=== PATIENT | male | born 1940 | race Caucasian/White ===

== ENCOUNTER 2016-10-10 22:19 | Inpatient (IN) | payer MEDICARE, BC ==
--- NOTE | ~2016-10-10 | CO ---
Unit #: [id number] #: [id number] Patient: AQUILES IRAHETA SR [id number] [address] [address] [id number] I MR#: [id number] NAME: AQUILES IRAHETA SR ROOM: 229 Age: 76 Sex: M Admission Date: 10/11/2016 : 1940 Attending Physician: Daniel Claire M.D. Primary Care Physician: Aquiles Glez M.D. Consultation Date: 10/13/2016 CONSULTATION REPORT CHIEF COMPLAINT Fever. HISTORY OF PRESENT ILLNESS The patient is a 76-year-old male with diabetic neuropathy and left Charcot foot who underwent left foot outpatient surgery on 10/10/2016. He underwent excision of his medial cuneiform with transfer of his anterior tibial tendon because of an impending ulceration on the medial aspect of his foot. He did not have a history of infection nor did he have a history of an ulceration. The patient then developed a postoperative fever and was admitted on postoperative day one with a reported fever of 100.7. He was subsequently found to have a urinary tract infection. Orthopedic consultation is requested to evaluate his foot for possible postoperative infection. PAST MEDICAL HISTORY Remarkable for: 1. Type 2 diabetes. 2. Peripheral neuropathy. 3. Coronary artery disease. 4. Coronary artery bypass graft. 5. Hypertension. 6. Sleep apnea. 7. COPD. 8. GE reflex. 9. Poe esophagus. PAST SURGICAL HISTORY 1. Coronary artery bypass graft. 2. Left foot surgery as noted above. 3. Left total knee arthroplasty. HOME MEDICATIONS 1. Albuterol. 2. Aspirin. 3. QVAR. 4. Natalia. 5. Neurontin. 6. Hydrochlorothiazide. 7. Insulin. 8. Glucophage. 9. Bystolic. 10. Omeprazole. 11. Percocet. Unit #: [id number] #: [id number] Patient: AQUILES IRAHETA SR 12. Bactrim. ALLERGIES Penicillin, morphine, Cleocin, chlorhexidine, amiodarone, Levaquin, statins, Victoza and mold. SOCIAL HISTORY The patient quit smoking 30 years ago. He drinks rarely. EXAMINATION Current temperature 99.1. Temperature eight hours ago was 101.3. Blood pressure 121/54, pulse 92. In general, this is an obese male in no acute distress. He is alert, oriented and does not have any complaints of pain. His foot dressing is dry and intact. The dressing was removed, his incision is inspected and found to be intact and dry. There is no evidence of bleeding, fluctuance or drainage. A posterior splint was reapplied with padding on the posterior heel. DIAGNOSTIC STUDIES LABORATORY: CBC today shows hemoglobin 12.7, hematocrit 36.2, white blood cell count 12.1. IMPRESSION 1. Postoperative fever, most likely secondary to atelectasis. 2. Urinary tract infection. 3. Postoperative left foot surgery three days ago. It is doubtful that his foot is the source of fever. PLAN 1. Incentive spirometry q.2 hours while awake. 2. Non-weight bearing for six weeks. 3. Follow up in my office as ordered in ten days. Dictated by.Kenny Bass M.D. GRUPO/helene TD: 10/13/2016 11:21 JOB #: [id number] CONSULTATION REPORT Page 1 of 1 X Luz Elena Bass MD X CONSULTATION REPORT
--- NOTE | ~2016-10-10 | CR72 ---
[facility] A Service of [facility] RADIOLOGY TEXT RESULTS PATIENT: AQUILES IRAHETA SR LOCATION: [facility] : 42 UNIT #: [id number] AGE: [address]: Daniel Claire MD SEX: M ORDER DR: [id number] [facility] [address] [facility] [place], [place] [address] [id number] I MR#: [id number] Acc #: [id number] NAME: AQUILES IRAHETA SR : 1940 SEX: M STUDY DATE/TIME: 10/11/2016 0:25 UNIT: CEDOF ROOM: 66921 STUDY DESCRIPTION: CR Chest Single View Portable Attending Physician: Daniel Claire M.D. Ordering Physician: Akosua Barreto M.D. Primary Care Physician: Aquiles Glez M.D. MEDICAL IMAGING REPORT This report is preliminary unless electronic signature is present EXAM Single view chest INDICATIONS Fever and shortness of air. 2-day duration. FINDINGS AP radiograph of the chest compared to 02/08/2016. The heart is mildly enlarged. Patient is status post CABG. No new pulmonary opacities. No pleural effusion. IMPRESSION Stable cardiomegaly. Patient is status post CABG. No new findings. Dictated by... Ryan Solares M.D. THIS IS AN ELECTRONICALLY VERIFIED REPORT Ryan Solares M.D. at 10/11/2016 11:13 PM RPC/rnr TD: 10/11/2016 05:28 JOB #: [id number] MEDICAL IMAGING REPORT Page 1 of 1 COPY
--- NOTE | ~2016-10-10 | HP ---
Unit #: [id number] #: [id number] Patient: AQUILES IRAHETA SR [id number] [address] [place], [place] [address] [id number] I MR#: [id number] NAME: AQUILES IRAHETA SR ROOM: 229 Age: 76 Sex: M Admission Date: 10/11/2016 : 1940 Attending Physician: Daniel Claire M.D. Primary Care Physician: Aquiles Glez M.D. HISTORY AND PHYSICAL HISTORY OF PRESENT ILLNESS This is a 76-year-old, white male with type 2 diabetes mellitus, peripheral neuropathy, coronary artery disease, coronary artery bypass grafting, hypertension, obstructive sleep apnea syndrome, COPD, GE reflux disease, Poe esophagus, left total knee replacement, and had left foot surgery yesterday by Dr. Bass for Charcot foot. He was home last night and began having rigors and high fever; according to the patient, it was 106.6. He arrived to the emergency room where it was 100.1. His O2 sat was 89%. Workup was essentially negative, except for an elevated white count and evidence of a urinary tract infection and the patient is admitted. He has had no problems in the past with urinary tract infection or BPH and does not have any voiding symptoms at this time. ALLERGIES He has stated allergies to penicillin, morphine, Cleocin, chlorhexidine, amiodarone, Levaquin, statins, Victoza, and mold. MEDICATIONS PRIOR TO ADMISSION 1. Albuterol 1 inhalation q.4 hours. 2. Aspirin 325 mg daily. 3. QVAR 2 puffs twice daily. 4. Natalia 180 mg daily. 5. Lasix 20 mg daily. 6. Neurontin 800 mg q.i.d. 7. Hydrochlorothiazide 50 mg daily. 8. Humalog 25 units subcu. t.i.d. with meals. 9. Lantus SoloStar 45 units subcu. q.h.s. 10. Glucophage 1000 mg b.i.d. 11. Bystolic 5 mg daily. 12. Omeprazole 40 mg daily. PAST SURGICAL HISTORY Left foot surgery yesterday for Charcot joint. He has had a left total knee replacement, coronary artery bypass grafting, cardiac stent, bilateral wrist surgery, bilateral elbow surgery, laminectomy, cholecystectomy, cataract surgery, and, actually, bilateral knee surgery. PAST MEDICAL HISTORY Coronary artery disease, type 2 diabetes mellitus with peripheral neuropathy, hypertension, COPD, obstructive sleep apnea syndrome, GE reflux disease with Poe esophagus. SOCIAL HISTORY He quit smoking some 30 years ago. Rare alcohol use. No street drug use. Unit #: [id number] #: [id number] Patient: AQUILES IRAHETA SR FAMILY HISTORY Noncontributory. PHYSICAL EXAMINATION GENERAL APPEARANCE: He is awake, alert, and oriented x3 in no acute distress. VITAL SIGNS: Temperature currently is 99.1, pulse 85, respirations 17, blood pressure 122/89, and O2 sat 89% on room air in the ER and now 97% on 2 liters. HEENT: Unremarkable except for nasal cannula in place. NECK: Supple without JVD, bruits, adenopathy, or thyromegaly. CHEST: Diffusely decreased breath sounds, but clear to auscultation. HEART: Regular rate and rhythm without any murmurs, rubs, or gallops. ABDOMEN: Large, soft, nondistended, and nontender with positive bowel sounds and no hepatosplenomegaly. EXTREMITIES: Show trace bilateral lower extremity edema. The left foot and ankle are dressed. : Deferred. RECTAL: Deferred. NEUROLOGIC: Grossly intact. DIAGNOSTIC STUDIES LABORATORY: Urinalysis shows 3+ leukocytes, 1+ blood, 200-300 white cells per high powered field, and no bacteria is seen. White count is 13.5 with a left shift, hemoglobin is 12.6, and platelets 250,000. PT and lactic acid are normal. CMP within normal limits, except for a sodium of 130, potassium of 3.3, and a GFR of 49. IMAGING: Chest x-ray: Stable cardiomegaly. Status post coronary artery bypass grafting. No active disease. IMPRESSION 1. Urinary tract infection. 2. Renal insufficiency of unclear duration. 3. Hypokalemia. 4. Hyponatremia. 5. Status post left foot surgery for Charcot foot. 6. Coronary artery disease, status post coronary artery bypass grafting. 7. Type 2 diabetes mellitus with peripheral neuropathy. 8. Obstructive sleep apnea syndrome, noncompliant with CPAP. 9. COPD. 10. GE reflux disease with history of Poe esophagus. 11. Hypertension. PLAN Urine and blood cultures, IV antibiotics, increase potassium, DVT prophylaxis, and postvoid bladder scan. Further evaluation pending results of the above. Dictated by Elvi Dotson/dejah TD: 10/11/2016 09:50 Unit #: [id number] #: [id number] Patient: AQUILES IRAHETA SR JOB #: [id number] HISTORY AND PHYSICAL Page 1 of 1 X Daniel Claire MD X HISTORY AND PHYSICAL
--- NOTE | ~2016-10-10 | DS ---
Unit #: [id number] #: [id number] Patient: AQUILES IRAHETA SR [id number] [address] [address] [id number] I MR#: [id number] NAME: AQUILES IRAHETA SR ROOM: 229 Age: 76 Sex: M Admission Date: 10/11/2016 : 1940 Discharge Date: 10/14/2016 Attending Physician: Daniel Claire M.D. Primary Care Physician: Aquiles Glez M.D. DISCHARGE SUMMARY PRINCIPAL DISCHARGE DIAGNOSES 1. Postoperative fever. 2. Pyuria with negative urine culture. 3. Recent left foot surgery for Charcot foot. 4. Type 2 diabetes mellitus with peripheral neuropathy. 5. Coronary artery disease status post coronary artery bypass grafting. 6. Hypertension. 7. Obstructive sleep apnea syndrome, noncompliant with continuous positive airway pressure. 8. Chronic obstructive pulmonary disease. 9. Gastroesophageal reflux disease. 10. History of Poe esophagus. 11. Renal insufficiency of unknown duration. 12. Hypoxemia on admission that resolved spontaneously. 13. Hypokalemia. 14. Hyponatremia. 15. Acute mental status changes on admission secondary to fever. PROCEDURES None. CONSULTANTS Dr. Bass from orthopedics. REASON FOR HOSPITALIZATION The patient is a 76-year-old male with type 2 diabetes mellitus, peripheral neuropathy, coronary artery disease, hypertension, coronary artery bypass grafting, obstructive sleep apnea syndrome, COPD, GE reflux disease, Poe esophagus. Underwent left foot surgery on 10/10/16 for Charcot foot. Later that evening he began to run a high fever, arrived in the emergency room somewhat confused. In the ER he had a low-grade temp at 99.3, even though it had been a 103 degrees at home. His O2 sat was 89% on room air. Urinalysis showed 3+ leukocytes with 200 to 300 white cells per high-powered field and 1+ blood. Random blood sugar was 138, GFR 49, potassium 3.3, sodium 130. Lactic acid was normal. PT-INR was normal. Chest x-ray showed no active disease. The patient was admitted for, what appeared to be, a postop urinary tract infection. HOSPITAL COURSE The patient was admitted to a med/surg bed. His potassium was replaced intravenously. Magnesium was checked and normal. Postvoid residual of the bladder was obtained and was 0 after a 300 mL void. Blood cultures and urine cultures were sent. Blood cultures no growth to date. Urine cultures no growth at 24 and 48 hours. Unit #: [id number] #: [id number] Patient: AQUILES IRAHETA SR Dr. Bass was asked to check the patient's foot, even though it seemed fairly soon after surgery to have an infection that would cause it. He had some kind of dressing on there that was not supposed to be removed. Dr. Bass saw the patient and stated that the foot had no evidence of infection and recommended incentive spirometry for possible atelectasis. This was performed. His room air O2 sat was rechecked and was 94%. His white count normalized. Repeat urinalysis was normal. Repeat chest x-ray showed no active disease. He has remained afebrile over the past 36 hours and is tolerating room air, tolerating a regular diet, is awake, alert, oriented x3 and being discharged home. He is to follow up with Dr. Glez in 1 week, at which time he should have a repeat BMP. He is on a constant carb, healthy heart diet. He is to use incentive spirometer q.2 hours while awake. DISCHARGE MEDICATIONS 1. He was given a prescription for Omnicef 300 mg 1 p.o. b.i.d. (#12). 2. KCl 10 mEq 2 p.o. daily. 3. Ventolin 2 puffs q.i.d. p.r.n. 4. QVAR 2 puffs b.i.d. 5. Neurontin 800 mg q.i.d. 6. Glucophage 1,000 mg b.i.d. 7. Natalia 180 mg daily. 8. Bystolic 5 mg daily. 9. Lasix 20 mg daily. 10. Hydrochlorothiazide 50 mg daily. 11. Humalog 25 units subcu q.a.c. 12. Lantus SoloSTAR 45 units subcu q.h.s. 13. Aspirin 325 mg daily. 14. Percocet 5/325 mg 1-2 tabs q.4 hours p.r.n. pain. 15. Omeprazole 40 mg p.o. daily. Dictated by... Elvi Dotson/sameer TD: 10/15/2016 09:15 JOB #: [id number] DISCHARGE SUMMARY Page 1 of 1 X Daniel Claire MD DISCHARGE SUMMARY
--- NOTE | ~2016-10-10 | CR63 ---
[facility] A Service [facility] RADIOLOGY TEXT RESULTS PATIENT: AQUILES IRAHETA SR LOCATION: [facility] : 42 UNIT #: [id number] AGE: [address]: Daniel Claire MD SEX: M ORDER DR: [id number] [facility] [address] [facility] [place], [place] [address] [id number] I MR#: [id number] Acc #: [id number] NAME: AQUILES IRAHETA : 1940 SEX: M STUDY DATE/TIME: 10/14/2016 9:34 UNIT: [facility] ROOM: 229 STUDY DESCRIPTION: CR Chest 2 View Attending Physician: Daniel Claire M.D. Ordering Physician: Daniel Claire M.D. Primary Care Physician: Aquiles Glez M.D. MEDICAL IMAGING REPORT This report is preliminary unless electronic signature is present EXAM Chest, 10/14/16 HISTORY A 76-year-old male patient, short of air, elevated temperature. Postop foot surgery. History of high blood pressure. COMPARISON STUDIES Chest 10/11/2016 FINDINGS Two-view chest demonstrates previous open-heart surgery with coronary bypass. Stable cardiomegaly. Mild vascular prominence with some cephalization of pulmonary venous distribution. There is no indication of overt failure at this time. I see no airspace infiltrates. IMPRESSION Atherosclerotic cardiovascular disease with stable cardiac enlargement. Large body habitus. No acute chest finding. Dictated by... Avery Collado M.D. THIS IS AN ELECTRONICALLY VERIFIED REPORT Avery Collado M.D. at 10/14/2016 1:23 PM BELEN/shawn TD: 10/14/2016 11:31 JOB #: [id number] [facility] A Service [facility] RADIOLOGY TEXT RESULTS PATIENT: AQUILES IRAHETA SR LOCATION: [facility] : 42 UNIT #: [id number] AGE: [address]: Daniel Claier MD SEX: M ORDER DR: MEDICAL IMAGING REPORT Page 1 of 1 COPY
[~2016-10-10 22:19] MED LIST: ALBUTEROL17 GM; ALBUTEROL17 GM INH; ALBUTEROL20 ml INH; ALLEGRA ALLERG180 MG PO; ALLEGRA60 MG PO; ASPIRINEC PO; ATENOLOL PO; BAYER ASPIRIN325 M1 PO; BYSTOLIC5 MG PO; EFFIENT10 MG; GABAPENT PO; GABAPENTIN300 MG PO; GLUCOPHAGE XR500 MG PO; GLYNASE PO; HCTZ PO; HUMALOG100 UNIT/1 SUBQ; JANUVIA PO; LANTUS SOL100 UNIT/1 SUBQ; LASIX20 MG PO; LEVAQUIN PO; LISINOPRIL PO; METFORMIN PO; MOBIC PO; NEURONTIN800 MG; OMEPRAZOLE40 M1 PO; OMERPRAZOLE; PHENERGAN DM PO; PRILOSEC PO; QVAR7.3 GM INH; QVAR8.7 G1 INH; SIMVASTATIN20 MG; TYLOX 5/500 CAP1 CAP PO; VICTOZA0.6 MG/0.1; VITAMIN B6 PO; [UNRECOGNIZED DRUG - OTHER]
[2016-10-11 00:31] LABS: URINE SOURCE CLEAN CATCH
[2016-10-11 00:36] LABS: URINE APPEARANCE CLOUDY; URINE BILIRUBIN NEG (NEG); URINE BLOOD 1+ (NEG); URINE COLOR YELLOW; URINE GLUCOSE NEG (NEG); URINE KETONE NEG (NEG); URINE LEUKOCYTE ESTERASE 3+ (NEG); URINE NITRATE NEG (NEG); URINE PROTEIN NEG (NEG); URINE SPECIFIC GRAVITY 1.016 (1.003-1.035)
[2016-10-11 00:39] LABS: CULTURE INDICATED? YES; URINE BACTERIA AUWI NEG (NEGATIVE); URINE SQUAMOUS EPITHELIAL CELL NONE SEEN /[HPF]; UWBCS1 AUWI 200-300 (0-5)
[2016-10-11 01:00] LABS: BASOPHIL# 0.1 X10e3 (0-0.3); BASOPHIL% 0.6 % (0-2.5); EOSINOPHIL# 0.1 X10e3 (0-0.7); EOSINOPHIL% 0.8 % (0.0-7.0); HEMOGLOBIN 12.6 gm/dL (13.0-16.0); LYMPHOCYTE# 1.4 X10e3 (1.0-3.5); LYMPHOCYTE% 10.2 % (17.0-45.0); MEAN CELL VOLUME 83.5 FL (83-96); MEAN CORPUSCULAR HGB CONC 32.4 g/dL (30-36); MEAN PLATELET VOLUME 7.1 FL (6.5-11.5); MONOCYTE# 1.2 X10e3 (0-1.0); NEUTROPHIL# 10.7 X10e3 (1.5-7.1); NEUTROPHIL% 79.4 % (40-75); PLATELET COUNT 250 X10e3 (140-420); RED BLOOD COUNT 4.67 X10e (3.90-5.60); RED CELL DISTRIBUTION WIDTH 17.1 % (11.0-15.5); WHITE BLOOD COUNT 13.5 X10e3 (4.0-10.5)
[2016-10-11 01:03] LABS: DIFF IND NO
[2016-10-11 01:10] LABS: INR 1.1; PROTHROMBIN TIME (PATIENT) 11.5 SECONDS (9.6-11.5)
[2016-10-11 01:30] LABS: ALBUMIN SERUM 3.5 g/dL (3.5-5.0); BILIRUBIN, DIRECT 0.2 mg/dL (0.0-0.2); BILIRUBIN,INDIRECT 0.8 mg/dL (0.0-0.9); BUN/CREATININE RATIO 14.28; CALCIUM SERUM 8.3 mg/dL (8.4-10.2); CREATININE SERUM 1.4 mg/dL (0.6-1.4); GLOM FILT RATE Estimated 49.2 mL/min (>60); POTASSIUM 3.3 mmol/L (3.5-5.1); PROTEIN TOTAL SERUM 6.8 g/dL (6.0-8.3)
[2016-10-11] MEDS ORDERED: ALBUTEROL17 GM INH (10:06)
[2016-10-11] MEDS ORDERED: PERCOCET5/325 PO (10:11)
[2016-10-12 05:16] LABS: HEMATOCRIT 39.7 % (38.0-50.0); HEMOGLOBIN 12.6 gm/dL (13.0-16.0); MEAN CELL VOLUME 84.6 FL (83-96); MEAN CORPUSCULAR HEMOGLOBIN 26.8 PG (28-34); MEAN CORPUSCULAR HGB CONC 31.6 g/dL (30-36); MEAN PLATELET VOLUME 7.4 FL (6.5-11.5); RED BLOOD COUNT 4.69 X10e (3.90-5.60); RED CELL DISTRIBUTION WIDTH 16.7 % (11.0-15.5); WHITE BLOOD COUNT 11.4 X10e3 (4.0-10.5)
[2016-10-12 06:40] LABS: BUN/CREATININE RATIO 15.33; CALCIUM SERUM 8.9 mg/dL (8.4-10.2); CREATININE SERUM 1.5 mg/dL (0.6-1.4); GLOM FILT RATE Estimated 45.2 mL/min (>60); POTASSIUM 3.6 mmol/L (3.5-5.1)
[2016-10-13 06:33] LABS: HEMATOCRIT 38.2 % (38.0-50.0); HEMOGLOBIN 12.7 gm/dL (13.0-16.0); MEAN CELL VOLUME 82.9 FL (83-96); MEAN CORPUSCULAR HEMOGLOBIN 27.6 PG (28-34); MEAN CORPUSCULAR HGB CONC 33.3 g/dL (30-36); MEAN PLATELET VOLUME 7.4 FL (6.5-11.5); RED BLOOD COUNT 4.61 X10e (3.90-5.60); RED CELL DISTRIBUTION WIDTH 16.7 % (11.0-15.5); WHITE BLOOD COUNT 12.1 X10e3 (4.0-10.5)
[2016-10-13 07:18] LABS: BUN/CREATININE RATIO 18.46; CALCIUM SERUM 8.9 mg/dL (8.4-10.2); CREATININE SERUM 1.3 mg/dL (0.6-1.4); GLOM FILT RATE Estimated 53.8 mL/min (>60); POTASSIUM 3.1 mmol/L (3.5-5.1)
[2016-10-13 10:21] LABS: URINE APPEARANCE CLEAR; URINE BILIRUBIN NEG (NEG); URINE BLOOD NEG (NEG); URINE COLOR YELLOW; URINE GLUCOSE NEG (NEG); URINE KETONE NEG (NEG); URINE LEUKOCYTE ESTERASE NEG (NEG); URINE NITRATE NEG (NEG); URINE PH 5.5 (5-8); URINE PROTEIN NEG (NEG); URINE UROBILINOGEN 0.2 MG/DL (NEG)
[2016-10-13 10:26] LABS: CULTURE INDICATED? NO
[2016-10-14 06:23] LABS: HEMATOCRIT 39.5 % (38.0-50.0); HEMOGLOBIN 13.1 gm/dL (13.0-16.0); MEAN CELL VOLUME 83.3 FL (83-96); MEAN CORPUSCULAR HEMOGLOBIN 27.7 PG (28-34); MEAN CORPUSCULAR HGB CONC 33.3 g/dL (30-36); MEAN PLATELET VOLUME 7.5 FL (6.5-11.5); RED BLOOD COUNT 4.74 X10e (3.90-5.60); RED CELL DISTRIBUTION WIDTH 16.5 % (11.0-15.5); WHITE BLOOD COUNT 10.5 X10e3 (4.0-10.5)
[2016-10-14 07:23] LABS: CALCIUM SERUM 9.2 mg/dL (8.4-10.2); GLOM FILT RATE Estimated 73.8 mL/min (>60); MAGNESIUM 1.9 mg/dL (1.6-3.0); POTASSIUM 4.3 mmol/L (3.5-5.1)
[2016-10-14] MEDS ORDERED: OMNICEF300 M1 PO (18:14)
[2016-10-14] MEDS ORDERED: POTASSIUM CHLO10 MEQ PO (18:15)
== END 2016-10-14 19:04 | DRG 981 ==
LOC: CED 22:19 → CEDOF 10-11 02:30 → C2A 10-11 02:30 → CEDOF 10-11 02:49 → CED 10-11 02:49 → C2A 10-11 09:28 → CEDOF 10-11 09:28 → C2A 10-14 19:04
PROVIDERS: Emergency Medicine; Internal Medicine
PROC: 0QBM0ZZ Excision of Left Tarsal, Open Approach (ICD-10-PCS; principal; 2016-10-11)
PROC: 0LXW0ZZ Transfer Left Foot Tendon, Open Approach (ICD-10-PCS; 2016-10-11)
DX: J95.89 Other postprocedural complications and disorders of respiratory system, not elsewhere classified (principal); G92 Toxic encephalopathy; E11.42 Type 2 diabetes mellitus with diabetic polyneuropathy; N39.0 Urinary tract infection, site not specified; E87.1 Hypo-osmolality and hyponatremia; J98.11 Atelectasis; Z79.4 Long term (current) use of insulin; I25.10 Atherosclerotic heart disease of native coronary artery without angina pectoris; Y83.8 Other surgical procedures as the cause of abnormal reaction of the patient, or of later complication, without mention of misadventure at the time of the procedure; Z95.1 Presence of aortocoronary bypass graft; Y79.8 Miscellaneous orthopedic devices associated with adverse incidents, not elsewhere classified; I10 Essential (primary) hypertension; G47.33 Obstructive sleep apnea (adult) (pediatric); J44.9 Chronic obstructive pulmonary disease, unspecified; K21.9 Gastro-esophageal reflux disease without esophagitis; K22.70 Barrett's esophagus without dysplasia; Z96.652 Presence of left artificial knee joint; Z88.0 Allergy status to penicillin; Z79.82 Long term (current) use of aspirin; N28.9 Disorder of kidney and ureter, unspecified; E87.6 Hypokalemia; Z91.19 Patient's noncompliance with other medical treatment and regimen; R50.82 Postprocedural fever; E11.610 Type 2 diabetes mellitus with diabetic neuropathic arthropathy
CPT/HCPCS: 71010; 71020; 80048; 80076; 81003; 82947; 83605; 83735; 84132; 85025; 85027; 85610; 87040; 87086; 94010; 94640; 94760; 99285; J0696; J1650; J1815; J3475

== ENCOUNTER → 2017-01-08 | Outpatient (CLI) | payer MEDICARE, BC ==
[~2017-01-08] MED LIST changes: +OMNICEF300 M1 PO; +PERCOCET5/325 PO; +POTASSIUM CHLO10 MEQ PO
--- NOTE | ~2017-01-08 | NM4 ---
[facility] A Service of [facility] RADIOLOGY TEXT RESULTS PATIENT: AQUILES IRAHETA SR LOCATION: [facility] : 42 UNIT #: [id number] AGE: [address]: Daniel Schaffer MD SEX: M ORDER DR: [id number] [facility] [address] [place], [place] [address] [id number] MR#: [id number] Acc #: [id number] NAME: AQUILES IRAHETA SR : 1940 SEX: M STUDY DATE/TIME: 01/08/2017 8:13 UNIT: [facility] ROOM: STUDY DESCRIPTION: MD Bone or Joint 3 Phase Study Attending Physician: Daniel Schaffer M.D. Referring Physician: Daniel Schaffer M.D. Ordering Physician: Dnaiel Schaffer M.D. Primary Care Physician: Aquiles Glez M.D. MEDICAL IMAGING REPORT This report is preliminary unless electronic signature is present EXAM Three-phase bone scan HISTORY Left knee pain and swelling starting 4 days ago. History of total knee replacement January 2016, left foot surgery September 29, 2016. History of Charcot foot. COMPARISON Left foot films 11/13/2016. Left knee films 02/07/2016. TECHNIQUE Three-phase bone scan was performed centered over the knees following intravenous administration of 29.1 mCi Tc-99m MDP. FINDINGS The examination demonstrates increased flow to the left knee, which appears diffuse about the left knee. Immediate blood-pool imaging also demonstrates diffuse increased uptake about the knee, most prominent within the proximal tibia. Delayed-phase imaging demonstrates increased uptake, predominately along the tibial component of the patient's left total knee arthroplasty, most prominent along the medial side. Increased uptake also noted within the patella. Findings would support an active inflammatory component and raise the concern for left knee infection and possible infected or loosening of the tibial component of the patient's total knee arthroplasty. Blood pool and delayed phase imaging of the feet and ankles demonstrates increased flow to the left foot and ankle with increased uptake localizing primarily to the midfoot on delayed-phase images. This is nonspecific but does imply active inflammatory component but could potentially be postsurgical in nature. The increased uptake and could also be due to STS. [facility] A Service of [facility] RADIOLOGY TEXT RESULTS PATIENT: AQUILES IRAHETA SR LOCATION: [facility] : 42 UNIT #: [id number] AGE: [address]: Daniel Schaffer MD SEX: M ORDER DR: active neuropathic arthropathy. On evaluation of the right knee demonstrates no significant increased flow. There is minimal increased uptake in the medial compartment on delayed-phase images and could reflect some early arthritic change. IMPRESSION 1. Abnormal three-phase bone scan demonstrating three-phase positive uptake about the left knee which would indicate an active inflammatory component. Localizing activity to the tibial component, particularly along the medial side, may be indicative of infection or loosening of the tibial component. Again, the increased flow and blood pool imaging suggests an active inflammatory component, underlying infectious or inflammatory process not excluded. 2. Increased uptake within the left foot on immediate blood pool and delayed phase images, primarily the midfoot corresponding to the patient's neuropathic arthropathy. Again, this would support an active inflammatory process or active neuropathic disease. Some this may be postsurgical in nature. Correlate with patient's clinical presentation. Dictated by... Paul Cain M.D. THIS IS AN ELECTRONICALLY VERIFIED REPORT Paul Cain M.D. at 01/09/2017 5:03 PM Shyla TD: 01/08/2017 22:47 JOB #: [id number] MEDICAL IMAGING REPORT Page 1 of 1 COPY
[2017-01-08 09:33] LABS: HEMATOCRIT 43.9 % (38.0-50.0); HEMOGLOBIN 14.6 gm/dL (13.0-16.0); MEAN CELL VOLUME 83.5 FL (83-96); MEAN CORPUSCULAR HEMOGLOBIN 27.7 PG (28-34); MEAN CORPUSCULAR HGB CONC 33.1 g/dL (30-36); MEAN PLATELET VOLUME 7.4 FL (6.5-11.5); RED BLOOD COUNT 5.26 X10e (3.90-5.60); RED CELL DISTRIBUTION WIDTH 16.5 % (11.0-15.5); WHITE BLOOD COUNT 6.4 X10e3 (4.0-10.5)
== END | disposition home or self-care (01) ==
LOC: CNUC 07:55
PROVIDERS: Orthopaedic Surgery
DX: M25.462 Effusion, left knee (principal); R94.8 Abnormal results of function studies of other organs and systems
CPT/HCPCS: 36415; 78315; 85027; 85652; 86140; A9503